=== PATIENT | female | born 1935 | race Caucasian/White ===

== ENCOUNTER 2019-01-31 10:50 | Inpatient (IN) | payer MEDICARE, BC ==
[2019-01-31] MEDS ORDERED: SODIUM CHLORIDE 0.9% 1,000 ML IV STA (11:23)
[2019-01-31] MEDS ORDERED: PANTOPRAZOLE 40 MG/10 ML VIAL IVP STA (11:23)
[2019-01-31 11:57] LABS: Basophils % (A) 1 %; Eosinophils # (A) 0.9 k/uL (0-0.7); Eosinophils % (A) 12 %; HGB 10.7 gm/dL (11.4-16.0); Lymphocytes # (A) 2.1 k/uL (1.0-4.8); Lymphocytes % (A) 31 %; MCH 29.6 pg (25.0-35.0); MCHC 33.5 g/dL (31.0-37.0); MCV 88.3 fL (80.0-100.0); Mean Platelet Volume 7.8; Monocytes # (A) 0.5 k/uL (0-1.0); Monocytes % (A) 7 %; Neutrophils # (A) 3.3 k/uL (1.3-7.7); Neutrophils % (A) 48 %; Platelet Count 218 k/uL (150-450); RBC 3.62 m/uL (3.80-5.40); RDW 14.1 % (11.5-15.5)
[2019-01-31 12:13] LABS: INR 2.7 (<1.2); Prothrombin Time 26.1 sec (9.0-12.0)
[2019-01-31 12:18] LABS: ALT 23 U/L (9-52); AST 23 U/L (14-36); Albumin 3.1 g/dL (3.5-5.0); Alkaline Phosphatase 67 U/L (38-126); Anion Gap 5 mmol/L; Blood Urea Nitrogen 19 mg/dL (7-17); Calcium 8.7 mg/dL (8.4-10.2); Carbon Dioxide 30 mmol/L (22-30); Chloride 102 mmol/L (98-107); Glucose 78 mg/dL (74-99); Lipase 133 U/L (23-300); Magnesium 1.9 mg/dL (1.6-2.3); Potassium 4.1 mmol/L (3.5-5.1); Sodium 137 mmol/L (137-145); Total Bilirubin 0.3 mg/dL (0.2-1.3); Total Protein 6.3 g/dL (6.3-8.2)
[2019-01-31] MEDS: SODIUM CHLORIDE 0.9% 1,000 ML IV STA ×2 (12:18→20:51)
--- NOTE | 2019-01-31 12:48 | ED ---
GI Bleed HPI - General Source: patient, RN notes reviewed, old records reviewed Mode of arrival: EMS Limitations: altered mental status, physical limitation <Toma Crump - Last Filed: 01/31/19 13:19> <Josef Fuentes - Last Filed: 01/31/19 13:47> - General Chief complaint: GI Bleed Stated complaint: GI bleed Time Seen by Provider: 01/31/19 10:51 - History of Present Illness Initial comments: Patient is a 83-year-old female who presents emergency department today for concerns for GI bleed. She was in extended care facility [facility]. Patient is currently on Coumadin for A. fib. She reports that she's had some dark tarry stool today. Patient has had no nausea or vomiting. She denies any abdominal pain. Last colonoscopy was 10 years ago. (Toma Crump) - Related Data Home Medications Medication Instructions Recorded Confirmed Acetaminophen [Tylenol Extra 1,000 mg PO TID PRN 01/31/19 01/31/19 Strength] Bisacodyl [Dulcolax] 10 mg RECTAL DAILY PRN 01/31/19 01/31/19 Cyanocobalamin (Vitamin B-12) 1,000 mcg PO DAILY 01/31/19 01/31/19 [Vitamin B-12] FLUoxetine HCL [PROzac] 20 mg PO DAILY 01/31/19 01/31/19 Ferrous Sulfate [Feosol] 325 mg PO BID 01/31/19 01/31/19 Sennosides [Senna] 17.2 mg PO HS PRN 01/31/19 01/31/19 Sotalol HCl [Sotalol AF] 80 mg PO BID 01/31/19 01/31/19 Warfarin [Coumadin] 0.5 mg PO HS 01/31/19 01/31/19 Warfarin [Coumadin] 5 mg PO HS 01/31/19 01/31/19 traMADol HCL [Ultram] 50 mg PO Q6HR PRN 01/31/19 01/31/19 Allergies Allergy/AdvReac Type Severity Reaction Status Date / Time No Known Allergies Allergy Verified 01/31/19 11:12 Review of Systems ROS Other: All systems not noted in ROS Statement are negative. <Toma Crump - Last Filed: 01/31/19 13:19> ROS Other: All systems not noted in ROS Statement are negative. <Josef Fuentes - Last Filed: 01/31/19 13:47> ROS Statement: Those systems with pertinent positive or pertinent negative responses have been documented in the HPI. Past Medical History Past Medical History: Atrial Fibrillation, Coronary Artery Disease (CAD), Dementia, Myocardial Infarction ([place]) Additional Past Medical History / Comment(s): anemia, cardiomyopathy, dysphagia, muscle weakness, difficulty walking History of Any Multi-Drug Resistant Organisms: None Reported Past Surgical History: Joint Replacement Additional Past Surgical History / Comment(s): left hip Past Psychological History: Depression Smoking Status: Never smoker Past Alcohol Use History: None Reported Past Drug Use History: None Reported <Toma Crump - Last Filed: 01/31/19 13:19> General Exam Limitations: altered mental status, physical limitation General appearance: alert, in no apparent distress Head exam: Present: atraumatic, normocephalic, normal inspection Eye exam: Present: normal appearance, PERRL, EOMI. Absent: scleral icterus, conjunctival injection, periorbital swelling ENT exam: Present: normal exam, mucous membranes moist Neck exam: Present: normal inspection. Absent: tenderness, meningismus, lymphadenopathy Respiratory exam: Present: normal lung sounds bilaterally. Absent: respiratory distress, wheezes, rales, rhonchi, stridor Cardiovascular Exam: Present: regular rate, normal rhythm, normal heart sounds. Absent: systolic murmur, diastolic murmur, rubs, gallop, clicks GI/Abdominal exam: Present: soft, normal bowel sounds. Absent: distended, tenderness, guarding, rebound, rigid Rectal exam: Present: normal inspection, heme (+) stool, black stool, bloody stool Extremities exam: Present: normal inspection, full ROM, normal capillary refill. Absent: tenderness, pedal edema, joint swelling, calf tenderness Back exam: Present: normal inspection Neurological exam: Present: alert, oriented X3, CN II-XII intact Psychiatric exam: Present: normal affect <Toma Crump - Last Filed: 01/31/19 13:19> - General Exam Comments Initial Comments: 83-year-old female. Alert and oriented 3. Patient has adistress. (Toma Crump) Course Vital Signs 01/31/19 01/31/19 10:52 12:15 Temperature 98.9 F Pulse Rate 61 57 L Respiratory 18 18 Rate Blood Pressure 140/63 136/62 O2 Sat by Pulse 98 99 Oximetry Medical Decision Making - Lab Data Result diagrams: 01/31/19 10:50 01/31/19 10:50 - Radiology Data Radiology results: report reviewed <TheronToma wilson - Last Filed: 01/31/19 13:19> - Lab Data Result diagrams: 01/31/19 10:50 01/31/19 10:50 <Josef Fuentes - Last Filed: 01/31/19 13:47> - Medical Decision Making 33-year-old female presents return today with concerns for black tarry stool today. She is on Coumadin. She was sent in by [employer] [facility]. Patient is on Coumadin for A. fib. Hemoglobin is low at 10.4. She is given IV fluids and started on Protonix. She complains of no abdominal pain at this time. Last colonoscopy was greater than 15 years ago. Patient has no GI doctor this time. Patient will be admitted this time for serial hemoglobins. Consult to GI. Patient was given vitamin K 5 units IV push. 2 units of FFP. Repeat CBCs and every 4 hours. (Toma Crump) 83-year-old female presenting with dark stool, concern for GI bleed. Patient is on Coumadin history of atrial fibrillation. Coumadin level is therapeutic, hemoglobin 10.4 which is stable, no baseline for this patient. Patient remains with stable vitals in the emergency department. Patient has soft abdomen, no fo kosta tenderness to palpation. Given vitamin K, fresh frozen plasma in the emergency department, Coumadin will be held. Hemoglobin will be repeated. Case discussed with admitting physician. (Josef Fuentes) - Lab Data Lab Results 01/31/19 01/31/19 01/31/19 Range/Units 10:40 10:50 10:50 WBC 7.0 (3.8-10.6) k/uL RBC 3.62 L (3.80-5.40) m/uL Hgb 10.7 L (11.4-16.0) gm/dL Hct 32.0 L (34.0-46.0) % MCV 88.3 (80.0-100.0) fL MCH 29.6 (25.0-35.0) pg MCHC 33.5 (31.0-37.0) g/dL RDW 14.1 (11.5-15.5) % Plt Count 218 (150-450) k/uL Neutrophils % 48 % Lymphocytes % 31 % Monocytes % 7 % Eosinophils % 12 % Basophils % 1 % Neutrophils # 3.3 (1.3-7.7) k/uL Lymphocytes # 2.1 (1.0-4.8) k/uL Monocytes # 0.5 (0-1.0) k/uL Eosinophils # 0.9 H (0-0.7) k/uL Basophils # 0.0 (0-0.2) k/uL PT (9.0-12.0) sec INR (<1.2) APTT (22.0-30.0) sec Sodium 137 (137-145) mmol/L Potassium 4.1 (3.5-5.1) mmol/L Chloride 102 (98-107) mmol/L Carbon Dioxide 30 (22-30) mmol/L Anion Gap 5 mmol/L BUN 19 H (7-17) mg/dL Creatinine 0.38 L (0.52-1.04) mg/dL Est GFR (CKD-EPI)AfAm >90 (>60 ml/min/1.73 sqM) Est GFR (CKD-EPI)NonAf >90 (>60 ml/min/1.73 sqM) Glucose 78 (74-99) mg/dL Plasma Lactic Acid Jatin (0.7-2.0) mmol/L Calcium 8.7 (8.4-10.2) mg/dL Magnesium 1.9 (1.6-2.3) mg/dL Total Bilirubin 0.3 (0.2-1.3) mg/dL AST 23 (14-36) U/L ALT 23 (9-52) U/L Alkaline Phosphatase 67 (38-126) U/L Troponin I (0.000-0.034) ng/mL Total Protein 6.3 (6.3-8.2) g/dL Albumin 3.1 L (3.5-5.0) g/dL Lipase 133 (23-300) U/L Stool Occult Blood (Negative) Blood Type Blood Type Confirm A Positive Blood Type Recheck Antibody Screen Spec Expiration Date 01/31/19 01/31/19 01/31/19 Range/Units 10:50 10:50 10:50 WBC (3.8-10.6) k/uL RBC (3.80-5.40) m/uL Hgb (11.4-16.0) gm/dL Hct (34.0-46.0) % MCV (80.0-100.0) fL MCH (25.0-35.0) pg MCHC (31.0-37.0) g/dL RDW (11.5-15.5) % Plt Count (150-450) k/uL Neutrophils % % Lymphocytes % % Monocytes % % Eosinophils % % Basophils % % Neutrophils # (1.3-7.7) k/uL Lymphocytes # (1.0-4.8) k/uL Monocytes # (0-1.0) k/uL Eosinophils # (0-0.7) k/uL Basophils # (0-0.2) k/uL PT 26.1 H (9.0-12.0) sec INR 2.7 H (<1.2) APTT 37.0 H (22.0-30.0) sec Sodium (137-145) mmol/L Potassium (3.5-5.1) mmol/L Chloride (98-107) mmol/L Carbon Dioxide (22-30) mmol/L Anion Gap mmol/L BUN (7-17) mg/dL Creatinine (0.52-1.04) mg/dL Est GFR (CKD-EPI)AfAm (>60 ml/min/1.73 sqM) Est GFR (CKD-EPI)NonAf (>60 ml/min/1.73 sqM) Glucose (74-99) mg/dL Plasma Lactic Acid Jatin 1.0 (0.7-2.0) mmol/L Calcium (8.4-10.2) mg/dL Magnesium (1.6-2.3) mg/dL Total Bilirubin (0.2-1.3) mg/dL AST (14-36) U/L ALT (9-52) U/L Alkaline Phosphatase (38-126) U/L Troponin I 0.093 H* (0.000-0.034) ng/mL Total Protein (6.3-8.2) g/dL Albumin (3.5-5.0) g/dL Lipase (23-300) U/L Stool Occult Blood (Negative) Blood Type Blood Type Confirm Blood Type Recheck Antibody Screen Spec Expiration Date 01/31/19 01/31/19 Range/Units 10:50 12:20 WBC (3.8-10.6) k/uL RBC (3.80-5.40) m/uL Hgb (11.4-16.0) gm/dL Hct (34.0-46.0) % MCV (80.0-100.0) fL MCH (25.0-35.0) pg MCHC (31.0-37.0) g/dL RDW (11.5-15.5) % Plt Count (150-450) k/uL Neutrophils % % Lymphocytes % % Monocytes % % Eosinophils % % Basophils % % Neutrophils # (1.3-7.7) k/uL Lymphocytes # (1.0-4.8) k/uL Monocytes # (0-1.0) k/uL Eosinophils # (0-0.7) k/uL Basophils # (0-0.2) k/uL PT (9.0-12.0) sec INR (<1.2) APTT (22.0-30.0) sec Sodium (137-145) mmol/L Potassium (3.5-5.1) mmol/L Chloride (98-107) mmol/L Carbon Dioxide (22-30) mmol/L Anion Gap mmol/L BUN (7-17) mg/dL Creatinine (0.52-1.04) mg/dL Est GFR (CKD-EPI)AfAm (>60 ml/min/1.73 sqM) Est GFR (CKD-EPI)NonAf (>60 ml/min/1.73 sqM) Glucose (74-99) mg/dL Plasma Lactic Acid Jatin (0.7-2.0) mmol/L Calcium (8.4-10.2) mg/dL Magnesium (1.6-2.3) mg/dL Total Bilirubin (0.2-1.3) mg/dL AST (14-36) U/L ALT (9-52) U/L Alkaline Phosphatase (38-126) U/L Troponin I (0.000-0.034) ng/mL Total Protein (6.3-8.2) g/dL Albumin (3.5-5.0) g/dL Lipase (23-300) U/L Stool Occult Blood Positive H (Negative) Blood Type A Positive Blood Type Confirm Blood Type Recheck CABO Indicated Antibody Screen NEGATIVE Spec Expiration Date 02/03/2019 - 234901/31/19 12:48 EKG performed at 11/09/1954 she sinus bradycardia left axis deviation. Nonspecific anterior ventricular block. Ventricular rate 50 bpm. Was 164 ms. Stressors and 140 ms. QT QTc is 500/490 ms. b (Toma Crump) - Radiology Data EKG shows sinus bradycardia, left axis deviation, nonspecific interventricular block. Ventricular rate of 50 bpm. Verbal is 164 ms. QRS duration is 140 ms. QT QTc is 500/or 90 ms. (Toma Crump) Critical Care Time Critical Care Time: Yes Total Critical Care Time: 35 <Toma Crump - Last Filed: 01/31/19 13:19> Critical Care Time: Greater than 35 minutes patient's care including examining the Patient tripping lab values. Patient is a 60 GI bleed. Repeat CBC lead completed every 4 hours. She was initiated on vitamin K given 2 units FFP. (Toma Crump) Disposition Is patient prescribed a controlled substance at d/c from ED?: No Time of Disposition: 13:20 <Toma Crump - Last Filed: 01/31/19 13:19> <Josef Fuentes - Last Filed: 01/31/19 13:47> Clinical Impression: GI bleed, Bleeding on Coumadin Disposition: ADMITTED IP TO THIS HOSP Condition: Stable
[2019-01-31] MEDS ORDERED: PHYTONADIONE 5 MG in SODIUM CHLORIDE 0.9% 50 ML IVPB STA (13:11)
[2019-01-31] MEDS ORDERED: HYDROmorphone 0.5 MG/0.5 ML SYRINGE IVP PRN (13:22)
[2019-01-31] MEDS ORDERED: NALOXONE 0.4 MG/ML 1 ML VIAL IV PRN (13:22)
[2019-01-31] MEDS ORDERED: ONDANSETRON 4 MG/2 ML VIAL IVP PRN (13:22)
[2019-01-31] MEDS ORDERED: MORPHINE SULFATE 4 MG/ML SYRINGE IV PRN (13:22)
[2019-01-31] MEDS ORDERED: BISACODYL 10 MG SUPP RECTAL PRN (13:24)
[2019-01-31] MEDS ORDERED: SENNOSIDES 8.6 MG TAB PO PRN (13:24)
[2019-01-31] MEDS: SODIUM CHLORIDE 0.9% 1,000 ML IV SCH (17:58)
[2019-01-31] MEDS: FERROUS SULFATE 325 MG TAB PO SCH (20:50)
[2019-01-31] MEDS: PANTOPRAZOLE 40 MG/10 ML VIAL IVP SCH (20:50)
[2019-01-31] MEDS: SOTALOL 80 MG TAB PO SCH (20:51)
[2019-01-31 21:02] LABS: Basophils % (A) 0 %; Eosinophils # (A) 0.8 k/uL (0-0.7); Eosinophils % (A) 13 %; HCT 27.5 % (34.0-46.0); Lymphocytes % (A) 33 %; MCH 29.6 pg (25.0-35.0); MCHC 33.2 g/dL (31.0-37.0); MCV 89.1 fL (80.0-100.0); Mean Platelet Volume 7.7; Monocytes # (A) 0.4 k/uL (0-1.0); Monocytes % (A) 7 %; Neutrophils # (A) 2.7 k/uL (1.3-7.7); Neutrophils % (A) 44 %; Platelet Count 175 k/uL (150-450); RBC 3.08 m/uL (3.80-5.40); RDW 14.3 % (11.5-15.5); WBC 6.1 k/uL (3.8-10.6)
[2019-01-31 21:14] LABS: HGB 9.1 gm/dL (11.4-16.0)
--- NOTE | 2019-02-01 00:12 | HP ---
HISTORY AND PHYSICAL DATE OF SERVICE: 01/31/2019. CHIEF COMPLAINT: GI bleed. HISTORY OF PRESENT ILLNESS: An 83-year-old woman with a past medical history of multiple medical problems including atrial fibrillation, CAD, dementia, myocardial infarction, anemia, cardiomyopathy, DJD, being closely monitored in the F, was noted to have GI bleed. The patient had multiple episodes of gastrointestinal bleed. The patient lives at [facility]. Patient is taking Coumadin for atrial fibrillation. The INR is 2.7. The hemoglobin is 10.7 and 9.1. The patient was evaluated in the ER and patient received vitamin K as well as fresh frozen plasma. The patient is being closely monitored. There is no history of fevers or rigors. No headache, loss of consciousness. The patient is unable to give coherent history, most of the history is taken from my discussion with staff and review of chart at this time. PAST MEDICAL HISTORY: History of atrial fibrillation, CAD, dementia, myocardial infarction, anemia, cardiomyopathy. MEDICATIONS: Home medications are : 1. Ultram 50 mg every 6 hours p.r.n. 2. Coumadin 5 mg and 7.5 mg at bedtime. 3. Sotalol 80 mg p.o. b.i.d. 4. Senna 17.2 mg p.o. at bedtime. 5. Paxil 50 mg p.o. b.i.d. 6. Prozac 20 mg p.o. 7. Vitamin B12, 1000 mcg p.o. daily. 8. Dulcolax 10 mg daily p.r.n. 9. Tylenol 1000 mg p.o. t.i.d. p.r.n. ALLERGIES: None. FAMILY HISTORY/SOCIAL HISTORY/REVIEW OF SYSTEMS: Could not be taken at length because of change in mental status. No history of smoking. Alcohol per chart. PHYSICAL EXAM: GENERAL: Patient is conscious but oriented x1. Patient has generalized wasting with BMI of 18.6. VITAL SIGNS: Pulse 88, blood pressure is 156/70, respirations 16, temperature 97.8, pulse ox 94% on room air. Patient has generalized HEENT: Conjunctivae pale. Oral mucosa moist. NECK: No jugular venous distention. No lymph node enlargement. CARDIOVASCULAR: S1 and S2 muffled. LUNGS: Breath sounds diminished at the bases. Few scattered rhonchi. No crackles. ABDOMEN: Soft, scaphoid, nontender. No mass palpable. EXTREMITIES: No edema. No swelling. NERVOUS SYSTEM: Higher functions as mentioned. Moves all 4 limbs. No focal motor deficits. LYMPH: No lymph nodes in the neck, axillae or groin. SKIN: No rash. JOINTS: No active joint deformity or arthropathy. LABS: WBC 6.1, hemoglobin 9.1. Otherwise troponin 0.93. Stool for O and P positive. ASSESSMENT: 1. Acute lower gastrointestinal bleed with acute blood loss anemia. 2. Troponin 0.093, indeterminate. 3. Coumadin monitoring. 4. History of atrial fibrillation, paroxysmal. 5. History of coronary artery disease. 6. Dementia. 7. Myocardial infarction. 8. History of cardiomyopathy. 9. History of mild to moderate protein calorie malnutrition. 10.History of degenerative joint disease. 11.History of depression. 12.FULL CODE. RECOMMENDATIONS AND DISCUSSION: This 83-year-old woman presented with multiple complex medical issues. We will monitor the patient closely. Continue the current management. Hold Coumadin. Monitor PT and INR closely. Will obtain GI consultation. Monitor hemoglobin closely. If the hemoglobin drops less than 7 will give transfusion. Prognosis guarded because of multiple complex medical complications. Further recommendations to follow. mary MMODL / IJN: [id number] /
[2019-02-01] MEDS: SODIUM CHLORIDE 0.9% 1,000 ML IV SCH ×3 (01:05→21:22)
[2019-02-01 06:43] LABS: Basophils % (A) 0 %; Eosinophils # (A) 0.7 k/uL (0-0.7); Eosinophils % (A) 12 %; HGB 10.1 gm/dL (11.4-16.0); Lymphocytes % (A) 33 %; MCH 28.7 pg (25.0-35.0); MCHC 32.5 g/dL (31.0-37.0); MCV 88.1 fL (80.0-100.0); Monocytes # (A) 0.4 k/uL (0-1.0); Monocytes % (A) 7 %; Neutrophils # (A) 2.8 k/uL (1.3-7.7); Neutrophils % (A) 46 %; Platelet Count 195 k/uL (150-450); RBC 3.52 m/uL (3.80-5.40); RDW 14.8 % (11.5-15.5); WBC 6.2 k/uL (3.8-10.6)
[2019-02-01 07:02] LABS: Anion Gap 4 mmol/L; Blood Urea Nitrogen 10 mg/dL (7-17); Calcium 8.9 mg/dL (8.4-10.2); Carbon Dioxide 33 mmol/L (22-30); Chloride 101 mmol/L (98-107); Glucose 84 mg/dL (74-99); Potassium 3.6 mmol/L (3.5-5.1); Sodium 138 mmol/L (137-145)
[2019-02-01] MEDS: PANTOPRAZOLE 40 MG/10 ML VIAL IVP SCH ×2 (08:31→20:01)
[2019-02-01] MEDS: FLUoxetine HCL 20 MG CAP PO SCH (08:31)
[2019-02-01] MEDS: CYANOCOBALAMIN 500 MCG TAB PO SCH (08:31)
[2019-02-01] MEDS: SOTALOL 80 MG TAB PO SCH ×2 (08:31→20:01)
[2019-02-01] MEDS: FERROUS SULFATE 325 MG TAB PO SCH ×2 (08:31→20:01)
[2019-02-01] MEDS: ACETAMINOPHEN TAB 500 MG TAB PO PRN (08:32)
[2019-02-01 16:40] VITALS: BMI 19.6
[2019-02-02] MEDS: SODIUM CHLORIDE 0.9% 1,000 ML IV SCH ×2 (02:28→21:25)
--- NOTE | 2019-02-02 07:09 | P.CONS ---
History of Present Illness - Reason for Consult Consult date: 02/01/19 Melena Requesting physician: Ekaterina Gomez - Chief Complaint Dark stool - History of Present Illness 83-year-old female with multiple medical comorbidities including atrial f ibrillation on Coumadin, previous myocardial infarction, coronary artery disease and memory impairment who presented to the hospital due to dark stool. The patient reports dark tarry stool prior to presentation with no evidence of gross blood in the stool. No associated abdominal pain reported by the patient. The patient denies any home PPI use, or excessive NSAID use. She denies any prior history of ulcers. After presentation to the hospital the patient has continued to be noted to be having dark colored stool with testing positive for occult blood. Hemoglobin was 10.7 on admission and subsequently fell to 9.1 and was found to be 10.1 on repeat lab draw. INR was initially 2.7 and the patient was given vitamin K for reversal of her INR. Total bilirubin 0.3, alkaline phosphatase 67, AST 23, ALT 23. Review of Systems REVIEW OF SYSTEMS: CONSTITUTIONAL: Denies any fevers, chills, weight change or fatigue. CARDIOVASCULAR: Denies any chest pain, palpitations high or low blood pressures RESPIRATORY: Denies any shortness of breath, hemoptysis or cough. GENITOURINARY: No dysuria or hematuria. MUSCULOSKELETAL: No weakness reported. SKIN: Denies any new rashes or lesions, jaundice or pallor. PSYCHIATRIC: Denies any depression or anxiety. NEUROLOGY: Denies headache, denies any new focal deficits. EARS/NOSE/THROAT: No recent hearing change, congestion, nasal discharge or sore throat. EYES: No pain in eyes, discharge or change in vision. GASTROINTESTINAL: As per HPI. Past Medical History Past Medical History: Atrial Fibrillation, Coronary Artery Disease (CAD), Dementia, Myocardial Infarction ([place]) Additional Past Medical History / Comment(s): anemia, cardiomyopathy, dysphagia, muscle weakness, difficulty walking Last Myocardial Infarction Date:: UNKNOWN History of Any Multi-Drug Resistant Organisms: None Reported Past Surgical History: Joint Replacement Additional Past Surgical History / Comment(s): left hip Past Psychological History: Depression Smoking Status: Never smoker Past Alcohol Use History: None Reported Past Drug Use History: None Reported Additional History: Family history: Procedure with the patient and noncontributory to current medical presentation. Medications and Allergies Home Medications Medication Instructions Recorded Confirmed Type Acetaminophen [Tylenol Extra 1,000 mg PO TID PRN 01/31/19 01/31/19 History Strength] Bisacodyl [Dulcolax] 10 mg RECTAL DAILY PRN 01/31/19 01/31/19 History Cyanocobalamin (Vitamin B-12) 1,000 mcg PO DAILY 01/31/19 01/31/19 History [Vitamin B-12] FLUoxetine HCL [PROzac] 20 mg PO DAILY 01/31/19 01/31/19 History Ferrous Sulfate [Feosol] 325 mg PO BID 01/31/19 01/31/19 History Sennosides [Senna] 17.2 mg PO HS PRN 01/31/19 01/31/19 History Sotalol HCl [Sotalol AF] 80 mg PO BID 01/31/19 01/31/19 History Warfarin [Coumadin] 0.5 mg PO HS 01/31/19 01/31/19 History Warfarin [Coumadin] 5 mg PO HS 01/31/19 01/31/19 History traMADol HCL [Ultram] 50 mg PO Q6HR PRN 01/31/19 01/31/19 History Allergies Allergy/AdvReac Type Severity Reaction Status Date / Time No Known Allergies Allergy Verified 01/31/19 11:12 Physical Exam Vitals: Vital Signs Temp Pulse Resp BP Pulse Ox 02/01/19 16:00 62 16 151/83 97 02/01/19 12:00 59 L 16 132/73 98 02/01/19 11:35 16 02/01/19 08:00 96.8 F L 65 16 147/69 94 L 02/01/19 03:28 98.1 F 60 18 156/77 97 01/31/19 23:35 98 F 63 18 159/76 96 01/31/19 20:00 16 01/31/19 19:35 97.8 F 88 16 156/67 94 L Intake and Output 02/01/19 02/01/19 02/01/19 06:59 14:59 22:59 Intake Total 480 400 Balance 480 400 Intake: Intake, IV Titration 200 Amount Sodium Chloride 0.9% 1, 200 000 ml @ 100 mls/hr IV . Q10H ERASMO Rx#:[id number] Oral 480 200 Other: Voiding Method Diaper Diaper Diaper # Voids 1 1 Weight 51.9 kg 51.9 kg On physical examination, patient appears comfortable in no apparent distress. HEAD: Normocephalic, atraumatic. EYES: No scleral icterus. No conjunctival injection. MOUTH: No lesions, tongue midline. NECK: Trachea midline, no gross abnormalities. CHEST: Clear to auscultation with no wheezing or rhonchi appreciated. HEART: Irregularly irregular. ABDOMEN: Soft. Bowel sounds are positive. No organomegaly. No guarding or rigidity. EXTREMITIES: No pedal edema. SKIN: No rashes, no jaundice. NEUROLOGIC: Alert and oriented. No focal deficits. Results CBC & Chem 7: 02/01/19 05:37 02/01/19 05:37 Labs: Abnormal Lab Results - Last 24 Hours (Table) 01/31/19 02/01/19 02/01/19 Range/Units 20:31 05:37 05:37 RBC 3.08 L 3.52 L (3.80-5.40) m/uL Hgb 9.1 L D 10.1 L (11.4-16.0) gm/dL Hct 27.5 L 31.0 L (34.0-46.0) % Eosinophils # 0.8 H (0-0.7) k/uL Carbon Dioxide 33 H (22-30) mmol/L Creatinine 0.31 L (0.52-1.04) mg/dL Assessment and Plan (1) GI bleed Narrative/Plan: 83-year-old presenting to the hospital with complaints of dark tarry stools, in the setting of Coumadin toxicity and supratherapeutic INR found to be 2.7 on admission. The patient has continued to have dark stool today, she denies any prior history of peptic ulcer disease or excessive NSAID use. Differential includes erosive esophagitis/gastritis, bleeding AVM, peptic ulcer disease or other etiology. Current Visit: Yes Status: Acute Code(s): K92.2 - GASTROINTESTINAL HEMORRHAGE, UNSPECIFIED SNOMED Code(s): 50104924 (2) Anemia associated with acute blood loss Current Visit: Yes Status: Acute Code(s): D62 - ACUTE POSTHEMORRHAGIC ANEMIA SNOMED Code(s): 118596323 Plan: Supportive care Clear liquid diet, nothing by mouth after midnight Continue to monitor hemoglobin and transfuse as needed Continue to monitor INR, daily laboratories ordered Continue to monitor for signs or symptoms of GI bleeding Continue Protonix 40 mg IV twice daily Avoid NSAID use or anticoagulation therapy at this time Patient is scheduled for an upper endoscopy Allowing us to participate in the care of this patient we will continue
[2019-02-02 07:46] LABS: Basophils % (A) 0 %; Eosinophils # (A) 0.4 k/uL (0-0.7); Eosinophils % (A) 6 %; HCT 32.3 % (34.0-46.0); HGB 10.2 gm/dL (11.4-16.0); Lymphocytes % (A) 31 %; MCH 27.6 pg (25.0-35.0); MCHC 31.5 g/dL (31.0-37.0); MCV 87.5 fL (80.0-100.0); Mean Platelet Volume 9.7; Monocytes # (A) 0.4 k/uL (0-1.0); Monocytes % (A) 6 %; Neutrophils # (A) 3.5 k/uL (1.3-7.7); Neutrophils % (A) 55 %; Platelet Count 207 k/uL (150-450); RBC 3.69 m/uL (3.80-5.40); RDW 15.9 % (11.5-15.5); WBC 6.4 k/uL (3.8-10.6)
[2019-02-02 08:00] LABS: Anion Gap 8 mmol/L; Blood Urea Nitrogen 9 mg/dL (7-17); Carbon Dioxide 31 mmol/L (22-30); Chloride 98 mmol/L (98-107); Glucose 90 mg/dL (74-99); Potassium 3.6 mmol/L (3.5-5.1); Sodium 137 mmol/L (137-145)
[2019-02-02] MEDS: PANTOPRAZOLE 40 MG/10 ML VIAL IVP SCH ×2 (08:00→21:23)
[2019-02-02 08:05] LABS: INR 0.9 (<1.2); Prothrombin Time 10.2 sec (9.0-12.0)
--- NOTE | 2019-02-02 09:20 | PN ---
PROGRESS NOTE DATE OF SERVICE: Service 02/01/2019 This 83-year-old woman was admitted with GI bleed, had PT/INR reversed. Hemoglobin is at 10.1 at this time. The patient is being closely monitored. No chest pain. No palpitations. No fever. EXAM: Alert and oriented x3. Pulse 51, blood [id number], respiration 18, temperature 98.2, pulse ox 94% on room air. HEENT: Conjunctivae pale. Oral mucosa moist. NECK: No jugular venous distention. No lymph node enlargement. CARDIOVASCULAR: S1, S2. RESPIRATORY: Diminished breath sounds at the bases. No rhonchi, no crackles. ABDOMEN: Soft, nontender. LEGS: No swelling. NERVOUS SYSTEM: No focal deficits. LAB: WBC 6.2, hemoglobin is 10.9, sodium 138, potassium 3.6. ASSESSMENT: 1. Acute lower gastrointestinal bleed with acute blood loss anemia. 2. Troponin 0.093, indeterminate. 3. Coumadin monitoring. 4. History of atrial fibrillation, paroxysmal. 5. History of coronary artery disease. 6. Dementia. 7. History of myocardial infarction. 8. History of cardiomyopathy. 9. Mild to moderate protein calorie malnutrition. 10.History of degenerative joint disease. 11.History of depression. 12.FULL CODE. RECOMMENDATIONS AND DISCUSSION: Continue current management, continue symptomatic treatment, repeat labs. Monitor PT, INR closely. Guarded prognosis because of multiple complex medical issues. Further recommendations to follow. MMODL / IJN: [id number] / MTDD
[2019-02-02] MEDS ORDERED: LIDOCAINE 1% INJ 10MG/ML (20 ML MDV) ONE (11:25)
[2019-02-02] MEDS ORDERED: PROPOFOL 10 MG/ML 20 ML VIAL IV ONE (11:25)
[2019-02-02] MEDS ORDERED: IV FLUID CONTINUATION 1,000 ML IV ONE (11:38)
--- NOTE | 2019-02-02 12:08 | P.PCN ---
Date of Procedure: 02/02/19 Procedure(s) Performed: Procedure: Esophagogastroduodenoscopy and biopsy. Preoperative diagnosis: GI bleeding. Postoperative diagnosis: 1. Small sliding hiatal hernia with no obvious esophagitis or complicated reflux disease. 2. Mild antral gastritis. 3. Biopsies obtained from the antrum. Preparation and sedation: Was provided by anesthesia. Brief clinical history: The patient is an 83-year-old female with multiple medical comorbidities including atrial fibrillation on Coumadin, previous myocardial infarction, coronary artery disease and memory impairment who presented to the hospital due to dark stools. The patient reports dark tarry stools prior to presentation with no evidence of gross blood in the stool. No associated abdominal pain reported by the patient. The patient denies any home PPI use, or excessive NSAID use. She denies any prior history of ulcers. After presentation to the hospital the patient has continued to be noted to be having dark colored stool with testing positive for occult blood. Hemoglobin was 10.7 on admission and subsequently fell to 9.1 and was found to be 10.1 on repeat lab draw. INR was initially 2.7 and the patient was given vitamin K for reversal of her INR. Total bilirubin 0.3, alkaline phosphatase 67, AST 23, ALT 23. She had prior colonoscopies the last at [facility] around 5 years ago. Other details are summarized in the history and physical and dictated consultations and progress notes. Procedure: With the patient on her left lateral decubitus position and after informed consent and adequate sedation, I passed the Olympus-GIF H190 video upper endoscope through the cricopharyngeus down the esophagus. There was a small sliding hiatal hernia but no obvious esophagitis or complicated reflux disease. The endoscope was then passed into the stomach which was insufflated with air and inspected in detail including the retroflex view in the cardia. There was some mottling, erythema and friability in the antrum but no ulcers or definite erosions. Pyloric channel, duodenal bulb, post bulbar area and descending duodenum appeared within normal limits. There was no ulcers or active bleeding. All secretions were either clear or bilious in color. I obtained biopsies from the antrum then the endoscope was withdrawn. The patient tolerated the procedure well. Plan: The patient and her family were reassured. Will await biopsy results. We will continue acid suppressive therapy and allow diet and make further plans ba sed on her course. We will follow with you with interest.
[2019-02-02] MEDS: SOTALOL 80 MG TAB PO SCH ×2 (12:49→21:22)
[2019-02-02] MEDS: CYANOCOBALAMIN 500 MCG TAB PO SCH (12:49)
[2019-02-02] MEDS: FLUoxetine HCL 20 MG CAP PO SCH (12:49)
[2019-02-02] MEDS: FERROUS SULFATE 325 MG TAB PO SCH ×2 (12:50→21:22)
--- NOTE | 2019-02-02 20:23 | PN ---
PROGRESS NOTE DATE OF SERVICE: 02/02/2019 83-year-old woman was admitted with lower GI bleed, is being closely monitored. Patient had acute blood-loss anemia. The patient underwent EGD by Dr. Waddell showed small sliding hiatal hernia with no obvious esophagitis or complicated mild antral gastritis and biopsies are taken. The patient was closely monitored. No active bleeding is noted. No chest pain. No palpitations. No fever. EXAM: Alert and oriented x3. Pulse is 53, blood pressure 171/77, respirations 16, temp 97.6, pulse ox 97% on room air. HEENT: Conjunctivae normal. NECK: No jugular venous distention. CARDIOVASCULAR: S1, S2 muffled. RESPIRATORY: Breath sounds diminished at the bases. A few scattered rhonchi and crackles. Abdomen is soft, nontender. Legs no edema. No swelling. Central nervous system: No focal deficits. LABORATORY DATA: WBC 6.5, hemoglobin is 10.2 sodium 137, potassium 3.6. ASSESSMENT: 1. Acute lower gastrointestinal bleeding with acute blood loss anemia. 2. Status post EGD showing a small sliding hiatal hernia as well as mild antral gastritis. 3. Troponin 0.98 indeterminate. 4. Coumadin monitoring. 5. History of atrial fibrillation paroxysmal. 6. History of coronary artery disease. 7. Dementia. 8. History of myocardial infarction. 9. History of cardiomyopathy. 10.[id number] protein calorie malnutrition. 11.History of degenerative joint disease. 12.History of depression. 13.FULL CODE. RECOMMENDATIONS AND DISCUSSION: Recommend to continue current medications and continue with monitoring, symptomatic treatment. Otherwise, at this time, we will monitor the patient. Proton pump inhibitors. Otherwise, closely follow with Gastroenterology. Repeat labs. The INR was only 0.9 today. Guarded prognosis because of multiple complex medical issues. Further recommendations to follow. MMODL / IJN: [id number] / MTDD
[2019-02-02] MEDS: hydrALAZINE HCL 50 MG TAB PO SCH (21:22)
[2019-02-02] MEDS: ALPRAZolam 0.25 MG TAB PO PRN (21:22)
[2019-02-03 07:46] LABS: Anisocytosis Slight; Basophils % (A) 0 %; Eosinophils # (A) 0.4 k/uL (0-0.7); Eosinophils % (A) 6 %; HCT 32.5 % (34.0-46.0); HGB 10.8 gm/dL (11.4-16.0); Lymphocytes % (A) 34 %; MCH 28.7 pg (25.0-35.0); MCHC 33.1 g/dL (31.0-37.0); MCV 86.8 fL (80.0-100.0); Mean Platelet Volume 9.9; Monocytes # (A) 0.4 k/uL (0-1.0); Monocytes % (A) 7 %; Neutrophils % (A) 51 %; Platelet Count 232 k/uL (150-450); RBC 3.74 m/uL (3.80-5.40); RDW 16.2 % (11.5-15.5); WBC 5.9 k/uL (3.8-10.6)
[2019-02-03 07:50] LABS: Prothrombin Time 10.4 sec (9.0-12.0)
[2019-02-03 08:22] LABS: Anion Gap 6 mmol/L; Blood Urea Nitrogen 7 mg/dL (7-17); Carbon Dioxide 32 mmol/L (22-30); Chloride 101 mmol/L (98-107); Glucose 90 mg/dL (74-99); Potassium 3.7 mmol/L (3.5-5.1); Sodium 139 mmol/L (137-145)
[2019-02-03] MEDS: FERROUS SULFATE 325 MG TAB PO SCH ×2 (08:48→22:07)
[2019-02-03] MEDS: PANTOPRAZOLE 40 MG/10 ML VIAL IVP SCH ×2 (08:48→22:06)
[2019-02-03] MEDS: CYANOCOBALAMIN 500 MCG TAB PO SCH (08:48)
[2019-02-03] MEDS: SOTALOL 80 MG TAB PO SCH ×2 (08:48→22:06)
[2019-02-03] MEDS: hydrALAZINE HCL 50 MG TAB PO SCH ×2 (08:48→22:06)
[2019-02-03] MEDS: FLUoxetine HCL 20 MG CAP PO SCH (08:48)
[2019-02-03] MEDS: SODIUM CHLORIDE 0.9% 1,000 ML IV SCH ×2 (14:50→22:11)
--- NOTE | 2019-02-03 19:53 | PN ---
PROGRESS NOTE DATE OF SERVICE: 02/03/2019 This 83-year-old woman was admitted with acute lower gastrointestinal bleeding, acute blood loss anemia is being closely monitored. No chest pain. No palpitations. No fever. The current hemoglobin at this time shows stable at 10.8. EXAM: Alert and oriented x2. Pulse 59, blood pressure 109/59, respiration 16, temperature 98.2, pulse ox 97% on room air. HEENT: Conjunctivae normal. NECK: No jugular venous distention. CARDIOVASCULAR: S1, S2 muffled. RESPIRATORY: Breath sounds diminished in the bases. A few rhonchi. No crackles. Abdomen is soft. Nontender. CENTRAL NERVOUS SYSTEM: No focal deficits. LAB STUDIES: WBC ntd hemoglobin 10.8. ASSESSMENT: 1. Acute gastrointestinal bleeding with acute blood loss anemia and status post EGD showing small sliding hiatal hernia as well as mild antral gastritis. 2. Troponin 0.09 indeterminate. 3. Coumadin monitoring. 4. History of atrial ablation, paroxysmal. 5. History of coronary artery disease. 6. History of dementia. 7. History myocardial infarction. 8. History of cardiomyopathy. 9. Mild to moderate protein calorie malnutrition. 10.History of degenerative joint disease. 11.History of depression. 12.FULL CODE. RECOMMENDATIONS AND DISCUSSION: Recommend to continue current medications, monitoring and symptomatic treatment. Will repeat hemoglobin. Otherwise, hold off Coumadin for now. Prognosis guarded. Further recommendations to follow. Possibly return to [facility]. SARKIS / ESTRADA: [id number] / MTDD
[2019-02-04 07:39] LABS: Basophils % (A) 0 %; Eosinophils # (A) 0.4 k/uL (0-0.7); Eosinophils % (A) 5 %; HCT 31.5 % (34.0-46.0); Lymphocytes # (A) 2.2 k/uL (1.0-4.8); Lymphocytes % (A) 28 %; MCH 28.2 pg (25.0-35.0); MCHC 31.8 g/dL (31.0-37.0); MCV 88.6 fL (80.0-100.0); Mean Platelet Volume 7.2; Monocytes # (A) 0.5 k/uL (0-1.0); Monocytes % (A) 6 %; Neutrophils # (A) 4.6 k/uL (1.3-7.7); Neutrophils % (A) 59 %; Platelet Count 225 k/uL (150-450); RBC 3.55 m/uL (3.80-5.40); RDW 14.5 % (11.5-15.5); WBC 7.8 k/uL (3.8-10.6)
[2019-02-04 07:45] LABS: Prothrombin Time 10.8 sec (9.0-12.0)
[2019-02-04 07:56] LABS: Anion Gap 6 mmol/L; Blood Urea Nitrogen 7 mg/dL (7-17); Calcium 8.5 mg/dL (8.4-10.2); Carbon Dioxide 29 mmol/L (22-30); Chloride 102 mmol/L (98-107); Glucose 86 mg/dL (74-99); Potassium 3.2 mmol/L (3.5-5.1); Sodium 137 mmol/L (137-145)
[2019-02-04] MEDS: FLUoxetine HCL 20 MG CAP PO SCH (09:51)
[2019-02-04] MEDS: CYANOCOBALAMIN 500 MCG TAB PO SCH (09:51)
[2019-02-04] MEDS: FERROUS SULFATE 325 MG TAB PO SCH ×2 (09:51→21:53)
[2019-02-04] MEDS: PANTOPRAZOLE 40 MG/10 ML VIAL IVP SCH ×2 (09:52→21:32)
[2019-02-04] MEDS: hydrALAZINE HCL 50 MG TAB PO SCH ×2 (09:52→21:32)
[2019-02-04] MEDS: SOTALOL 80 MG TAB PO SCH ×2 (09:53→21:53)
[2019-02-04 11:44] VITALS: RESP 16
[2019-02-04] MEDS ORDERED: POTASSIUM CHLORIDE ER 20 MEQ TAB.ER PO STA (16:13)
--- NOTE | 2019-02-04 16:43 | PN ---
PROGRESS NOTE DATE OF SERVICE: 02/04/2019 This 83-year-old woman who was admitted with acute lower GI bleeding, acute gastrointestinal bleeding also had EGD showing sliding hiatal hernia and mild antral gastritis. The patient has some melenic stools. Hemoglobin is 10.3. Patient being closely monitored. No chest pain. No palpitations. No fever. EXAM: Alert and oriented x2. Pulse 64, blood pressure 116/58, respiration 16, temperature 98.2, pulse ox 98% on room air. HEENT: Conjunctivae normal. NECK: No jugular venous distention. CARDIOVASCULAR: S1, S2 muffled. RESPIRATORY: Breath sounds diminished in the bases. No rhonchi. No crackles. Abdomen is soft, nontender. Legs are no edema, no swelling. CENTRAL NERVOUS SYSTEM: No focal deficits. LAB STUDIES: WBC 7.8, hemoglobin is 10, sodium 137, potassium 3.2. ASSESSMENT: 1. Acute gastrointestinal bleeding with acute blood loss anemia status post EGD showing small sliding hiatal hernia as well as mild antral gastritis. 2. Troponin 0.09 indeterminate. 3. Hypokalemia. 4. Coumadin monitoring off Coumadin currently. 5. History of atrial fibrillation paroxysmal. 6. History of coronary artery disease. 7. History of dementia. 8. History of myocardial infarction. 9. History of cardiomyopathy. 10.Mild to moderate protein calorie malnutrition. 11.History of degenerative joint disease. 12.History of depression. 13.FULL CODE. RECOMMENDATIONS AND DISCUSSION: Recommend to continue current medications, management and symptomatic treatment. Closely follow with Gastroenterology for further evaluation if necessary. Otherwise, supplement potassium. I would also recommend off Coumadin currently and continue to monitor. Guarded prognosis. Further recommendations to follow. MMODL / IJN: [id number] /
--- NOTE | 2019-02-04 21:43 | P.PN ---
Subjective Progress Note Date: 02/04/19 Principal diagnosis: Melena, anemia and acute blood loss Patient seen lying in bed. Has been tolerating diet. No signs or symptoms of GI bleeding reported. Objective - Vital Signs Vital signs: Vital Signs Temp 98.3 F 02/04/19 11:43 Pulse 64 02/04/19 11:43 Resp 16 02/04/19 11:43 BP 116/58 02/04/19 11:43 Pulse Ox 96 02/04/19 11:43 Intake & Output 02/04/19 02/04/19 02/05/19 06:59 18:59 06:59 Intake Total 720 Output Total 350 4 Balance 370 -4 Weight 51.9 kg Intake: Intake, IV Titration 480 Amount Sodium Chloride 0.9% 1, 480 000 ml @ 60 mls/hr IV . [id number] Rx#:[id number] Oral 240 Output: Urine 350 2 Stool 2 Other: Voiding Method Diaper Diaper Incontinent Incontinent # Voids 4 - Exam On physical examination, patient appears comfortable in no apparent distress. HEAD: Normocephalic, atraumatic. EYES: No scleral icterus. No conjunctival injection. MOUTH: No lesions, tongue midline. NECK: Trachea midline, no gross abnormalities. CHEST: Clear to auscultation with no wheezing or rhonchi appreciated. HEART: S1-S2 appreciated. ABDOMEN: Soft, obese. Bowel sounds are positive. No organomegaly. No guarding or rigidity. EXTREMITIES: No pedal edema. SKIN: No rashes, no jaundice. NEUROLOGIC: Alert and interactive but only oriented to person. No focal deficits. - Labs CBC & Chem 7: 02/04/19 07:15 02/04/19 07:15 Labs: Abnormal Lab Results - Last 24 Hours (Table) 02/04/19 02/04/19 Range/Units 07:15 07:15 RBC 3.55 L (3.80-5.40) m/uL Hgb 10.0 L (11.4-16.0) gm/dL Hct 31.5 L (34.0-46.0) % Potassium 3.2 L (3.5-5.1) mmol/L Creatinine 0.36 L (0.52-1.04) mg/dL Assessment and Plan (1) GI bleed Narrative/Plan: 83-year-old presenting to the hospital with complaints of dark tarry stools, in the setting of Coumadin toxicity and supratherapeutic INR found to be 2.7 on admission. EGD was performed with only findings of gastritis, but no findings of active bleeding or old blood. Hemoglobin has remained stable at 10 today with no signs or symptoms of GI bleeding. Current Visit: Yes Status: Acute Code(s): K92.2 - GASTROINTESTINAL HEMORRHAGE, UNSPECIFIED SNOMED Code(s): 14148392 (2) Anemia associated with acute blood loss Current Visit: Yes Status: Acute Code(s): D62 - ACUTE POSTHEMORRHAGIC ANEMIA SNOMED Code(s): 122769220 Plan: Supportive care Diet advance to Continue to monitor hemoglobin and transfuse as needed Continue to monitor INR, daily laboratories ordered Continue to monitor for signs or symptoms of GI bleeding Protonix daily Avoid NSAID use or anticoagulation therapy at this time No plans for further endoscopic evaluation at this time, we'll consider if patient has any further signs or symptoms of GI bleeding or fall in hemoglobin Thank you for allowing us to participate in the care of the patient, the gastroenterology service will stand by, please call us back with any questions or concerns
[2019-02-05] MEDS: ACETAMINOPHEN TAB 500 MG TAB PO PRN (02:46)
[2019-02-05 05:33] VITALS: PULSE 61
[2019-02-05] MEDS ORDERED: PANTOPRAZOLE 40 MG TABLET PO SCH (07:30)
[2019-02-05 08:00] LABS: Basophils % (A) 0 %; Eosinophils # (A) 0.4 k/uL (0-0.7); Eosinophils % (A) 4 %; HCT 32.6 % (34.0-46.0); HGB 10.4 gm/dL (11.4-16.0); Lymphocytes # (A) 2.5 k/uL (1.0-4.8); Lymphocytes % (A) 26 %; MCH 28.7 pg (25.0-35.0); MCHC 32.1 g/dL (31.0-37.0); MCV 89.5 fL (80.0-100.0); Mean Platelet Volume 7.1; Monocytes # (A) 0.6 k/uL (0-1.0); Monocytes % (A) 6 %; Neutrophils # (A) 5.9 k/uL (1.3-7.7); Neutrophils % (A) 62 %; Platelet Count 238 k/uL (150-450); RBC 3.64 m/uL (3.80-5.40); RDW 14.6 % (11.5-15.5); WBC 9.5 k/uL (3.8-10.6)
[2019-02-05 08:04] LABS: Prothrombin Time 10.5 sec (9.0-12.0)
[2019-02-05 08:12] LABS: Anion Gap 6 mmol/L; Blood Urea Nitrogen 7 mg/dL (7-17); Calcium 9.2 mg/dL (8.4-10.2); Carbon Dioxide 30 mmol/L (22-30); Chloride 102 mmol/L (98-107); Glucose 91 mg/dL (74-99); Potassium 3.7 mmol/L (3.5-5.1); Sodium 138 mmol/L (137-145)
[2019-02-05] MEDS: hydrALAZINE HCL 50 MG TAB PO SCH (08:48)
[2019-02-05] MEDS: SOTALOL 80 MG TAB PO SCH (08:49)
[2019-02-05] MEDS: FLUoxetine HCL 20 MG CAP PO SCH (08:49)
[2019-02-05] MEDS: FERROUS SULFATE 325 MG TAB PO SCH (08:55)
[2019-02-05] MEDS: ALPRAZolam 0.25 MG TAB PO PRN (08:55)
[2019-02-05] MEDS: CYANOCOBALAMIN 500 MCG TAB PO SCH (08:55)
--- NOTE | 2019-02-05 10:51 | P.DS ---
Providers Date of admission: 01/31/19 13:12 Attending physician: Ekaterina Gomez Primary care physician[facility] Course: Final diagnosis acute GI bleeding with acute blood loss anemia status post EGD showing small sliding hiatal hernia as well as mild antral gastritis. Troponin 0.09 indeterminate Hypokalemia Coumadin monitoring Off Coumadin currently History of atrial fibrillation proximal History of for CAD History dementia History of myocardial infarction History cardiomyopathy Mild to moderate protein calorie malnutrition History of DJD History depression Full code Discharge disposition patient be discharged in stable condition with a guarded prognosis to [facility] for further evaluation and treatment. Total time taken is 35 minutes. History of present illness this 8-year-old woman with a past medical history of multiple medical problems was a admitted from [facility] with the complaints of GI bleed and anemia. Hemoglobin is closely monitored stable at 10.2 at this time patient underwent EGD by gastroneurology showed some hiatal hernia as well as some gastritis as mentioned earlier.Gastroenterology performed the biopsies. Final reports are pending at this time. On exam vitals are stable. Cardio S1 and S2 normal. Respirator system clear to auscultation. Abdomen soft nontender. No mass palpable. Nervous system mild weakness. Patient be discharged in a stable condition with guarded prognosis. Recommended to hold the Coumadin for now. Restart in the next in 10-14 days if there is no additional bleeding and the hemoglobin was stable. Please refer to the discharge reconciliation list of medications. Patient Condition at Discharge: Stable Plan - Discharge Summary Discharge Rx Participant: No New Discharge Prescriptions: New hydrALAZINE HCL [Apresoline] 50 mg PO BID #0 tab Continue Acetaminophen [Tylenol Extra Strength] 1,000 mg PO TID PRN PRN Reason: Pain Bisacodyl [Dulcolax] 10 mg RECTAL DAILY PRN PRN Reason: Constipation Cyanocobalamin (Vitamin B-12) [Vitamin B-12] 1,000 mcg PO DAILY Ferrous Sulfate [Iron (65 MG Elemental)] 325 mg PO BID FLUoxetine HCL [PROzac] 20 mg PO DAILY Sennosides [Senna] 17.2 mg PO HS PRN PRN Reason: Constipation Sotalol HCl [Sotalol AF] 80 mg PO BID traMADol HCL [Ultram] 50 mg PO Q6HR PRN #10 tablet PRN Reason: Pain Discontinued Warfarin [Coumadin] 0.5 mg PO HS Warfarin [Coumadin] 5 mg PO HS Discharge Medication List Acetaminophen [Tylenol Extra Strength] 1,000 mg PO TID PRN 01/31/19 [History] Bisacodyl [Dulcolax] 10 mg RECTAL DAILY PRN 01/31/19 [History] Cyanocobalamin (Vitamin B-12) [Vitamin B-12] 1,000 mcg PO DAILY 01/31/19 [History] FLUoxetine HCL [PROzac] 20 mg PO DAILY 01/31/19 [History] Ferrous Sulfate [Iron (65 MG Elemental)] 325 mg PO BID 01/31/19 [History] Sennosides [Senna] 17.2 mg PO HS PRN 01/31/19 [History] Sotalol HCl [Sotalol AF] 80 mg PO BID 01/31/19 [History] hydrALAZINE HCL [Apresoline] 50 mg PO BID #0 tab 02/05/19 [Rx] traMADol HCL [Ultram] 50 mg PO Q6HR PRN #10 tablet 02/05/19 [Rx] Follow up Appointment(s)/Referral(s): Abhijit Levine MD [Primary Care Provider] - 1-2 days Patient Instructions/Handouts: Gastrointestinal Bleeding (DC) Activity/Diet/Wound Care/Special Instructions: [facility] hold coumadin for now. Restart i 10-14 days if no more bleeding and stable hemoglobin diet as tolerated
[2019-02-05 11:55] VITALS: BP 125/63; TEMP 98.1
== END 2019-02-05 13:38 | DRG 378 ==
LOC: EC 10:50 → 3SCARD 13:12 → 3NMEDONC 02-01 20:40
PROVIDERS: ADMIT Hospitalist; ATTEND Hospitalist
PROC: 0DB78ZX Excision of Stomach, Pylorus, Via Natural or Artificial Opening Endoscopic, Diagnostic (ICD-10-PCS; principal; 2019-02-02 11:30)
DX: K29.71 Gastritis, unspecified, with bleeding (principal); D62 Acute posthemorrhagic anemia; E44.0 Moderate protein-calorie malnutrition; I42.9 Cardiomyopathy, unspecified; K44.9 Diaphragmatic hernia without obstruction or gangrene; E87.6 Hypokalemia; F03.90 Unspecified dementia, unspecified severity, without behavioral disturbance, psychotic disturbance, mood disturbance, and anxiety; I25.2 Old myocardial infarction; I25.10 Atherosclerotic heart disease of native coronary artery without angina pectoris; I48.0 Paroxysmal atrial fibrillation; M19.90 Unspecified osteoarthritis, unspecified site; T45.515A Adverse effect of anticoagulants, initial encounter; Z79.01 Long term (current) use of anticoagulants; Z79.899 Other long term (current) drug therapy; F32.9 Major depressive disorder, single episode, unspecified; R13.10 Dysphagia, unspecified; R26.2 Difficulty in walking, not elsewhere classified; Z96.642 Presence of left artificial hip joint
CPT/HCPCS: 36415; 43239; 80048; 80053; 82272; 83605; 83690; 83735; 84484; 85025; 85610; 85730; 86850; 86900; 86901; 88305; 88342; 93005; 96361; 96365; 96375; 99291

== ENCOUNTER 2020-01-03 | Inpatient (IN) | payer MEDICARE, BC | END 2020-01-07 16:00 | DRG 291 | PROVIDERS: ADMIT Hospitalist | CPT/HCPCS: 36415; 71045; 71046; 74177; 80048; 80053; 81001; 82272; 83605; 83735; 83880; 84484; 85025; 85610; 85730; 86850; 86900; 86901; 87086; 87502; 93005; 93306; 94640; 94760; 96361; 96365; 96375; 96376; 99291 ==